=== PATIENT | female | born 1975 | race Caucasian/White ===

== ENCOUNTER 2016-09-23 14:09 | Emergency (ER) | payer OTHER ==
--- NOTE | 2016-09-23 14:54 | PROVIDER DOCUMENTATION ---
HPI-General Adult - General Chief Complaint: Extremity Injury Stated Complaint: RLE BRUISING Time Seen by Provider: 09/23/16 14:39 Source: patient Allergies/Adverse Reactions: Patient Allergies Allergy/AdvReac Type Severity Reaction Status Date / Time isoproterenol HCl * Allergy Unknown Unknown Verified 09/23/16 14:18 [From Isuprel] Home Medications: Aspirin 81 mg PO DAILY 11/14/12 Calcium Carbonate Chew [Tums] 500 mg PO DAILY 11/14/12 Divalproex E.r. [Depakote ER] 500 mg PO BID 11/14/12 Fluticasone 50 Mcg Nasal Thayer [Flonase] 2 spray PARISH DAILY 11/14/12 Fluticasone Propionate 110 INH [Flovent 110 Microgm Hfa] 2 puff INH RTBID Levothyroxine [Synthroid] 88 microgm PO BID 11/14/12 Medroxyprogesterone Acetate [Depo-Provera] 150 mg IM DIRECTED 11/14/12 Mupirocin Ointment [Bactroban Ointment] 1 applicatn TOP DAILY 11/14/12 Polyethylene Glycol 3350 [Miralax] 17 gm PO DAILY 11/14/12 Quetiapine Fumarate [Seroquel] 400 mg PO HS 11/14/12 Quetiapine [Seroquel] 200 mg PO BID 11/14/12 Zafirlukast [Accolate] 20 mg PO BID 11/14/12 - History of Present Illness -Gen Adult Nature of Presenting Problems: Pt. is 40yof that presents with c/o swelling, pain and bruising to the right lower extremity. Pt. is an MR patient that [place] a [place]. The on shift caregiver is at bedside. The caregiver reports the patient is a good girl and today while cleaning her up noticed the right leg injury. Pt. is unable to speak and give a Hx. There are multiple bruises all over the patients body that are in multiple stages of healing. Location of Pain/Injury: reports: lower extremity (Right lower). denies: head, face, mouth, neck, chest, upper extremity, hand(s), abdomen, back, pelvis, genitalia, feet, upper body, lower body, generalized Pain Radiation: reports: no radiation Quality of Pain: reports: aching. denies: burning, cramping, dull, fullness, indigestion, pressure, sharp, stabbing, tearing, throbbing, tightness Severity: reports: moderate. denies: mild, severe Onset/Duration: reports: unsure Timing: reports: still present. denies: improving, gone now, resolved prior to arrival, intermittent, constant, changing over time, getting worse Context/Activities at Onset: reports: light activity, recent trauma history. denies: recent emotional stress, recent physical stress, possible bad food, cold exposure, out of country travel Modifying Factors: improves with: nothing Associated Symptoms: reports: trouble walking. denies: anxiety, arm pain, back/ neck pain, chest pain, constipation, cough, diaphoresis, diarrhea, dizziness, EENT symptoms, fatigue, fever/chills, genitourinary problems, headaches, heartburn, joint pain, loss of appetite, malaise, muscle aches, sinus congestion /drainage, nausea, rash, seizure, shortness of breath, sensory/motor loss, pain with inspiration, swelling/mass in abdomen, syncope, vomiting, weakness Similar Symptoms Previously?: Yes Recently seen or treated by another doctor?: No Review of Systems - Adult - REVIEW OF SYSTEMS - ADULT Constitutional: reports: see HPI. denies: chills, fever, fatique Eyes: reports: see HPI. denies: discharge, blurred vision, double vision, eye pain Ears, Nose, Mouth & Throat: reports: see HPI. denies: ear discharge, ear pain, nose pain, loose teeth, mouth/dental pain, throat swelling Cardiovascular: reports: see HPI. denies: chest pain, irregular heart rate, orthopnea, syncope Respiratory: reports: see HPI. denies: chronic cough, cough, dyspnea on exertion, pleurisy, shortness of breath, wheezing Gastrointestinal: reports: see HPI. denies: abdominal pain, hematemesis, diarrhea, nausea, vomiting Genitourinary: reports: see HPI. denies: dysuria, discharge, flank pain, hematuria, incontinence, urgency Musculoskeletal: reports: see HPI, bone pain (Right lower extremity), joint swelling (Right ankle). denies: frequent leg cramps, muscle aches, muscle weakness, neck pain Integumentary: reports: see HPI, other (bruising). denies: hives, itching, rash , skin thickening Neurological: reports: see HPI. denies: ataxia, headache/migraines, numbness, paresthesia, seizure, tremors Psychiatric: reports: see HPI. denies: anxiety, depression, emotional problems , insomnia, panic attacks, suicidal thoughts Past History - Adult - PAST MEDICAL HISTORY-ADULT Review of Records: reports: Old Records Reviewed, Nursing Assessment Review, Medications Reviewed, Social history reviewed & non-contributory. Major Childhood Illnesses: reports: denies history Cardiovascular: reports: CHF Respiratory: reports: asthma Neurological: reports: other (MR) - IMMUNIZATION STATUS Childhood Immunizations: See Nurse Assessment Flu Vaccine: See Nurse Assessment - FAMILY HISTORY Family History: reviewed, not pertinent Physical Exam-General - PHYSICAL EXAM-ADULT Initial Vital Signs Reviewed: Yes - CONSTITUTIONAL General Appearance: alert, mild distress, obese, lethargic. negative: thin, anxious, slow to respond, obtunded, combative - EYES Eyes: PERRL/EOMI, pink conjunctivae. negative: conjuctival exudate, photophobia , subconjunctival hemorrhage - HEAD, EARS, NOSE, MOUTH & THROAT HENMT: normocephalic/atraumatic, moist mucous membranes, normal ENT inspection. negative: angioedema, frontal tenderness, maxillary tenderness - NECK Neck: non-tender, full range of motion, supple, normal inspection. negative: lymphadenopathy, trachial deviation, thyromegaly - RESPIRATORY Respiratory: lungs clear, normal breath sounds. negative: crackles, rales, rhonchi, stridor, wheezing - CARDIOVASCULAR Cardiovascular: normal peripheral pulses, regular rate, rhythm, no edema, no JVD , no murmur. negative: extra beats, friction rub, irregularly irregular - CHEST (BREASTS) Chest/Breast: deferred - GASTROINTESTINAL (ABDOMEN) Abdominal Exam: normal bowel sounds, non tender, soft. negative: distended, guarding, rigid, rebound, tenderness, hernia, mass - GENITOURINARY Female Genitalia/Pelvic Exam: deferred Rectal Exam: deferred Hemoccult Exam: deferred - LYMPHATIC Lymphatic: no adenopathy. negative: axilla node tender, cervical node tenderness - MUSCULOSKELETAL Back Exam: normal inspection, no CVA tenderness, no vertebral tenderness. negative: decreased range of motion, swelling, vertebral tenderness Extremity: deformity (Right lower extremity), swelling (Right lower extremity), tenderness (Right lower extremity) Peripheral Pulses: radial (R): 2+, radial (L): 2+ - SKIN Integumentary: normal turgor, warm/dry, ecchymosis (There is significant bruising to the right lower extremity but also there are many bruises about the body in various stages of healing. Particularly on the knees and a newer bruise on the back.). negative: cyanosis, diaphoresis, erythema, jaundice, mottled, pallor, petechiae, purpura, rash, swelling, tenderness - NEUROLOGIC Neurologic: grossly normal, no motor/sensory deficits. negative: facial droop, focal weakness, motor weakness, sensory deficit - PSYCHIATRIC Psych/Mental Status: normal mood/affect. negative: anxious, paranoid, tearful Progress - PLAN OF CARE/RESULTS Progress/Plan/Lab Results: Discussed with police captain the status of her investigation and she reports that she will file a report but that she doesn't have enough evidence to say the patient is in danger. [facility] has been notified. Discussed with caregiver at bedside the follow up and treatment that needs to take place and she verbally understands. Vital Signs Temp Pulse Resp BP Pulse Ox 09/23/16 16:38 98.3 F 96 H 14 116/68 93 L 09/23/16 14:24 98 F 94 H 18 98/71 99 isoproterenol HCl * [From Isuprel] Allergy (Unknown, Verified 09/23/16 14:18) Unknown Aspirin 81 mg PO DAILY 11/14/12 Calcium Carbonate Chew [Tums] 500 mg PO DAILY 11/14/12 Divalproex E.r. [Depakote ER] 500 mg PO BID 11/14/12 Fluticasone 50 Mcg Nasal Thayer [Flonase] 2 spray PARISH DAILY 11/14/12 Fluticasone Propionate 110 INH [Flovent 110 Microgm Hfa] 2 puff INH RTBID Levothyroxine [Synthroid] 88 microgm PO BID 11/14/12 Medroxyprogesterone Acetate [Depo-Provera] 150 mg IM DIRECTED 11/14/12 Mupirocin Ointment [Bactroban Ointment] 1 applicatn TOP DAILY 11/14/12 Polyethylene Glycol 3350 [Miralax] 17 gm PO DAILY 11/14/12 Quetiapine Fumarate [Seroquel] 400 mg PO HS 11/14/12 Quetiapine [Seroquel] 200 mg PO BID 11/14/12 Zafirlukast [Accolate] 20 mg PO BID 11/14/12 Diltiazem [Cardizem] 120 mg PO QAM #30 tablet 11/16/12 Cephalexin [Keflex] 500 mg PO TID #21 capsule 11/23/15 Orders Category Date Time Status OCL Splint DIRECTED Care 09/23/16 14:54 Active ANKLE COMPLETE RIGHT [RAD] Stat Exams 09/23/16 14:21 Completed FOOT COMPLETE RIGHT [RAD] Stat Exams 09/23/16 14:21 Completed LOWER LEG-RIGHT [RAD] Stat Exams 09/23/16 14:21 Completed - XRAY 1 XRAY: Right XRAY Study: Tibia/Fibula XRAY Interpretation: Distal fibula Fx (Geo) 2 XRAY: Right XRAY Study: Ankle, Foot XRAY Interpretation: Distal fibula Fx (Geo) Departure - Departure Time of Disposition Order: 17:33 DIAGNOSIS: Fibula fracture Qualifiers: Encounter type: initial encounter Fibula location: distal Fracture type: closed Fracture morphology: other fracture Laterality: right Qualified Code(s): S82.831A - Other fracture of upper and lower end of right fibula, initial encounter for closed fracture Disposition: HOME 01 Certified Medical Emergency: Emergent Condition: Stable Additional Instructions: Follow up with primary care physician Follow up with orthopedic physician Take medications as directed Return to ED for any concerns or worsening of symptoms ED Follow Up Instructions: You have been treated by a care provider in the Emergency Department. These instructions are being provided to you so you can have an understanding of how to care for yourself upon discharge. Upon discharge from the Emergency Department, you are responsible for making arrangements for follow-up care by a physician of your choice. Take all prescribed medications as directed. Return to the Emergency Department immediately for any new or worsening symptoms. You may call the Physician Referral phone number at [phone] to obtain a list of Physicians who are taking new patients. Prescriptions: Hydrocodone/APAP 5 mg/325 mg [[place]-5] 1 each PO Q6H PRN PRN #8 tablet PRN Reason: Pain Referrals: None,PCP [Primary Care Provider] - Dale Esteves MD [STAFF PHYSICIAN] - Attestation - Physician/ Mid-level Attestation Patient care was provided by Mid-level provider (SHAFTING WORKER/PA):: Yes Mid-level provider:: Nereida Guardado Mid-level documentation review:: The Mid-level provider documentation, treatment plan and medical decision making was reviewed by the physician who agrees with all treatment and medical decision making by the MLP.
--- NOTE | 2016-09-23 15:07 | Diag Imaging Result Document ---
PROCEDURE NAME: ANKLE COMPLETE RIGHT - 09/23/2016 RIGHT ANKLE, THREE VIEWS: FINDINGS: There is an acute spiral fracture of the distal fibula. There is deformity of the distal tibia and fibula, consistent with more remote trauma. The ankle mortise is intact. IMPRESSION: Acute spiral fracture, distal fibula.
--- NOTE | 2016-09-23 15:09 | Diag Imaging Result Document ---
PROCEDURE NAME: LOWER LEG-RIGHT - 09/23/2016 RIGHT LOWER LEG, TWO VIEWS: FINDINGS: Deformity about the distal tibia and fibula is noted, compatible with old healed fractures. There is an acute spiral fracture of the distal fibula, consisting of soft tissue swelling. IMPRESSION: Acute spiral fracture of the distal fibula.
--- NOTE | 2016-09-23 15:14 | Diag Imaging Result Document ---
PROCEDURE NAME: FOOT COMPLETE RIGHT - 09/23/2016 RIGHT FOOT, 3 VIEWS: INDICATION: Bruising. COMPARISON: 07/06/2016. FINDINGS: There is a healed fracture of the proximal phalanx of the little toe. There is degenerative change IP joint of the great toe with sclerosis. There are deformities about the fourth and fifth metatarsal heads consistent with previous trauma. No acute bony abnormality is appreciated. IMPRESSION: Chronic deformity consistent with previous trauma involving the fourth and fifth metatarsal heads and proximal phalanx of the little toe. No definite acute abnormality.
[2016-09-23 18:35] VITALS: BP 121/75
== END 2016-09-23 18:35 | disposition home or self-care (01) ==
LOC: P.ED 14:09
DX: S82.441A Displaced spiral fracture of shaft of right fibula, initial encounter for closed fracture (principal); S80.02XA Contusion of left knee, initial encounter; S80.01XA Contusion of right knee, initial encounter; S80.11XA Contusion of right lower leg, initial encounter; S30.0XXA Contusion of lower back and pelvis, initial encounter; M79.661 Pain in right lower leg; F79 Unspecified intellectual disabilities; M89.8X6 Other specified disorders of bone, lower leg; Z79.899 Other long term (current) drug therapy; M25.471 Effusion, right ankle; J45.909 Unspecified asthma, uncomplicated; R53.83 Other fatigue; E66.9 Obesity, unspecified; Z68.30 Body mass index [BMI] 30.0-30.9, adult; Z79.51 Long term (current) use of inhaled steroids; Z79.82 Long term (current) use of aspirin